=== PATIENT | female | born 1985 | race Caucasian/White ===

== ENCOUNTER 2016-10-13 11:46 | Emergency (ER) | payer BC, OTHER ==
[2016-10-13 11:58] VITALS: BMI 26.6
[2016-10-13] MEDS ORDERED: KETOROLAC TROMETH 30 MG/ML VIAL IV ONE (12:13)
--- NOTE | 2016-10-13 12:15 | EDPRACDOC ---
- General Information Chief Complaint: Chest Pain Stated Complaint: CP [place] CAN'T BREATH Time Seen by Provider: 10/13/16 12:06 Information Source: Patient Mode of Arrival: Car Home Medications: Home Medications ClonazePAM [Klonopin] 0.5 mg PO BID PRN 06/09/15 Cyclobenzaprine HCl [Flexeril] 10 mg PO Q8H PRN 06/09/15 Hydrocodone/Acetaminophen [Lortab 5-325 mg Tablet] 1 each PO Q6-8H #20 tablet Duloxetine [Cymbalta] 20 mg PO DAILY 04/30/16 Ketorolac Tromethamine 10 mg PO Q8H PRN #15 tab 10/13/16 Allergies/Adverse Reactions: Allergies Allergy/AdvReac Type Severity Reaction Status Date / Time No Known Allergies Allergy Verified 10/13/16 11:57 - History of Present Illness Onset: THIS AM HPI: Pt c/o R side chest pain x 1 day. C/o sob. Denies fever, cough, congestion, sore throat, abd pain, n/v, changes in bowel or bladder, rash, leg swelling. Pt states pain worse with movement, breathing. Chest Pain Location: Reports: Right Chest Pain Radiation: Reports: None Symptoms Occur: Reports: Suddenly Cardiac Risk Factors: Reports: Smoker, Hypertension Cardiac History of: Denies: Cardiac Cath, Stress Test PE Risk Factors: Reports: None Medications within 24 Hours: Reports: None Prehospital Care: Reports: None Pain Came On: Reports: Suddenly Pain Status: Present Now Pain Description: Reports: Sharp, Aching Pain Severity: Moderate Pain Worsens With: Reports: Coughing, Breathing, Movement Pain Improves With: Reports: Nothing Associated Signs and Symptoms: Reports: SOB Other History: Pt states she was going to PCP office for evaluation of flushing that turns to hives when she is anxious. PCP ofice told her to come to ED if she was having chest pain. ED Past Medical History - History Reviewed Yes Nurses notes reviewed and agree except as marked - Patient Medical History GI/ History: Reports: Urinary Tract Infection Psychological History: Reports: Anxiety. Denies: Depression Systemic History: Denies: Anemia - Family Medical History Reports: Hypertension (MOTHER, GRANDMOTHER), Stroke, Cardiac Disorders ( GRANDMOTHER). Denies: Diabetes, Cancer - Social Medical History Smoking Status: Heavy tobacco smoker (5 or more cigarettes/day or daily pipe/ cigar) ETOH: None Substance Abuse: None EDM Review of Systems - Review of Systems Constitutional: No Symptoms Reported. negative: Fever, Chills, Weakness, Fatigue, Loss of Appetite Ears: No Symptoms Reported. negative: Pain, Hearing Loss, Drainage, Ear Pulling Throat: No Symptoms Reported. negative: Pain, Swelling Nose: No Symptoms Reported. negative: Congestion, Bleeding, Discharge, Injection, Swelling, Deformity, Ecchymosis, Tender, Abrasion, Laceration Mouth: No Symptoms Reported. negative: Pain, Drooling Respiratory: Shortness of Breath Cardiovascular: Chest Pain Gastrointestinal: No Symptoms Reported. negative: Pain, Constipation, Nausea, Vomiting, Diarrhea, Melena, Formula Intolerance Genitourinary: No Symptoms Reported. negative: Dysuria, Hematuria, Frequency, Discharge, Bleeding, Testicular Pain, Neurological: No Symptoms Reported. negative: Headache, Dizziness, Seizure, Numbness, Weakness, Speech Difficulty, Gait Difficulty Musculoskeletal: Chestwall Integumentary: No Symptoms Reported. negative: Itching, Rash, Bruising, Wound Allergic/Immunologic: No Symptoms Reported. negative: Hives, Itching Hematologic: No Symptoms Reported. negative: Lymphadenopathy, Easy Bruising, Easy Bleeding Psychiatric: No Symptoms Reported. negative: Anxiety, Depression, Hallucinations, Insomnia, Suicidal - Physical Exam Constitutional: Alert (Awake) Oriented to: Time, Person, Place Last recorded Vital Signs: Last Vital Signs Temp 98.2 F 10/13/16 11:50 Pulse 84 10/13/16 11:50 Resp 18 10/13/16 11:50 BP 130/70 10/13/16 11:50 Pulse Ox 97 10/13/16 11:50 Oxygen Pulse Oxygen Saturation 97 O2 Device Oxygen Flow Rate Fraction of Inspired Oxygen ( FIO2) - HEENT Head: Normal ( normocephalic) Eye Exam: Normal (PERRL, EOMI, Sclera white) Oropharynx: Normal (Pharynx:Moist without exudate,Gums-no swelling) Tympanic Membrane: Normal ENT EAC: Normal Nose: No Symptoms Reported (septum midline) Neck: Normal (FROM, trachea at midline) - Respiratory/Cardiovascular Respiratory: Normal - CTA (BBS clear to auscultation without adventitious sounds ) Cardiovascular: Normal (RRR without murmur, gallop or rub) - GI Auscultation: Normal (NABS) Palpation: Normal (Soft,No rebound or guarding, non distended) Tenderness: Non tender - Musculoskeletal Back: Normal (Non-Tender) Extremities: Normal (Normal tone, Pulses 2+ No cyanosis or edema, FROM) - Integumentary Skin: Normal, Warm, Dry Lymphatics: Normal (no adenopathy) - Neurologic Memory Impaired: Normal Motor Function: Normal (Normal tone, Pulses 2+ No cyanosis or edema, FROM) Mood Description: Normal Perception: Normal ED Chest Pain Exam - Respiratory/Cardiovascular Respiratory: Normal - CTA (clear to auscultation without adventitious sounds) Cardiovascular/Chest: Normal (RRR without murmur, gallop or rub) Radial Pulse: Normal Edema: 5. negative: 1+, 2+, 3+, 4+, 6 Chest Palpation: Tender, Reproduces Pain - Differential Diagnosis Chest wall pain, Costochondritis, Pneumonia, Pneumothorax - Action ASA given in the ED: No - Results 10/13/16 12:15 10/13/16 12:15 10/13/16 13:28 Laboratory Results - last 24 hr 10/13/16 10/13/16 10/13/16 12:15 12:15 12:15 WBC 11.4 H RBC 4.28 Hgb 11.7 L Hct 35.7 L MCV 84 MCH 27.3 MCHC 32.7 L RDW 18.0 H Plt Count 285 MPV 9.4 Neut % (Auto) 59.3 Lymph % (Auto) 31.4 Rooks % (Auto) 6.2 Eos % (Auto) 2.0 Baso % (Auto) 1.1 Absolute Neuts (auto) 6.73 Absolute Lymphs (auto) 3.53 Sodium 140 Potassium 3.8 Chloride 106 Carbon Dioxide 24 Anion Gap 14 BUN 12 Creatinine 0.70 Estimated GFR (MDRD) > 60 Glucose 92 Calculated Osmolality 269 L Calcium 9.1 Total Bilirubin 0.5 AST 16 ALT 28 Alkaline Phosphatase 67 Troponin I < 0.01 Total Protein 7.6 Albumin 4.5 Urine Color Urine Clarity Urine pH Ur Specific [place] Urine Protein Urine Glucose (UA) Urine Ketones Urine Occult Blood Urine Nitrite Urine Bilirubin Urine Urobilinogen Ur Leukocyte Esterase Urine RBC Urine WBC Ur Epithelial Cells Urine Mucus Urine Test Neg 10/13/16 12:15 WBC RBC Hgb Hct MCV MCH MCHC RDW Plt Count MPV Neut % (Auto) Lymph % (Auto) Rooks % (Auto) Eos % (Auto) Baso % (Auto) Absolute Neuts (auto) Absolute Lymphs (auto) Sodium Potassium Chloride Carbon Dioxide Anion Gap BUN Creatinine Estimated GFR (MDRD) Glucose Calculated Osmolality Calcium Total Bilirubin AST ALT Alkaline Phosphatase Troponin I Total Protein Albumin Urine Color Yellow Urine Clarity Clear Urine pH 5.0 Ur Specific [place] 1.020 Urine Protein Neg Urine Glucose (UA) Neg Urine Ketones Neg Urine Occult Blood Neg Urine Nitrite Neg Urine Bilirubin Neg Urine Urobilinogen <2.0 Ur Leukocyte Esterase Neg Urine RBC 2-5 Urine WBC 0-2 Ur Epithelial Cells 1+ Urine Mucus Occ Urine Test - EKG EKG #1 EKG Time: 11:51 Rate: bpm: 81 [place]: RAD Rhythm: NSR Block: None ST: Normal - Diagnostic Imaging Chest Image interpreted by: Radiologist IMPRESSION: No active cardiopulmonary disease. Decision Time to Discharge: 13:28 - Departure Disposition: Home Condition: Good Final Diagnosis: Costochondral chest pain Instructions: Chest Wall Pain (ED) Education/Counseling Given To: Patient Education/Counseling Given Regarding: Diagnosis, Treatment, Follow Up Referrals: Karyn Rizo NP [Primary Care Provider] - One Week Prescriptions: New Ketorolac Tromethamine 10 mg PO Q8H PRN #15 tab PRN Reason: Pain No Action Cyclobenzaprine HCl [Flexeril] 10 mg PO Q8H PRN PRN Reason: Muscle Spasms ClonazePAM [Klonopin] 0.5 mg PO BID PRN PRN Reason: Anxiety Hydrocodone/Acetaminophen [Lortab 5-325 mg Tablet] 1 each PO Q6-8H #20 tablet Duloxetine [Cymbalta] 20 mg PO DAILY Additional Instructions: Return for worse or different symptoms.
[2016-10-13 12:33] LABS: AUTOMATED BASOPHIL 1.1 % (0-2); AUTOMATED LYMPH 31.4 % (17-44); AUTOMATED MONOCYTE 6.2 % (3-10); AUTOMATED NEUTROPHIL 59.3 % (45-76); MPV 9.4 fL (7.4-10.4)
[2016-10-13 12:35] LABS: LEUKOCYTES/URINE NEG (NEGATIVE); NITRITE/URINE NEG (NEGATIVE); URINE OCCULT BLOOD NEG (NEG/TRACE); WBC/URINE 0-2 (0-5)
[2016-10-13 12:39] LABS: BLOOD UREA NITROGEN 12 MG/DL (7-17); CALCIUM 9.1 MG/DL (8.4-10.2); CALCULATED OSMOLALITY 269 MOs/Kg (270-290); CHLORIDE 106 mEq/L (98-107); GLUCOSE 92 mg/dL (70-99); SODIUM LEVEL 140 mEq/L (137-146); TOTAL PROTEIN 7.6 G/DL (6.3-8.2)
--- NOTE | 2016-10-13 13:10 | DIRPT ---
CLINICAL DATA: Right-sided chest pain EXAM: CHEST 2 VIEW COMPARISON: 02/14/2014 FINDINGS: The heart size and mediastinal contours are within normal limits. Both lungs are clear. The visualized skeletal structures are unremarkable. IMPRESSION: No active cardiopulmonary disease. Electronically Signed By: Jose Luis Tam M.D. On: 10/13/2016 13:07
[2016-10-13 13:38] VITALS: BP 105/55; PULSE 61; TEMP 97.9
== END 2016-10-13 13:40 | disposition home or self-care (01) ==
LOC: ED 11:46 → EDMC 13:40
DX: M94.0 Chondrocostal junction syndrome [Tietze] (principal)
CPT/HCPCS: 36415; 71020; 80053; 81001; 81025; 84484; 85025; 93005; 96374; 99283; J1885